=== PATIENT | male | born 1985 | race Caucasian/White ===

== ENCOUNTER 2016-07-14 18:59 | Emergency (ER) | payer SELFPAY ==
[2016-07-14 20:39] VITALS: BP 117/84; PULSE 93; TEMP 98.9; BMI 24.3
--- NOTE | 2016-07-14 20:43 | EDPRACDOC ---
- General Information Chief Complaint: Wound Stated Complaint: ABD ABSCESS X 2 Time Seen by Provider: 07/14/16 20:35 Information Source: Patient Mode of Arrival:: Car Home Medications: Home Medications Cephalexin Monohydrate [Keflex] 500 mg PO Q6H #28 cap 02/03/16 Ibuprofen 600 mg PO TID #20 tablet 02/03/16 Lorazepam [Ativan] 1 mg PO TID #10 tab 02/03/16 Cephalexin Monohydrate [Keflex] 500 mg PO QID #28 cap 07/14/16 Clindamycin HCl 300 mg PO TID #21 capsule 07/14/16 Ketorolac Tromethamine 10 mg PO Q8H PRN #15 tab 07/14/16 Allergies/Adverse Reactions: Allergies Allergy/AdvReac Type Severity Reaction Status Date / Time Sulfa (Sulfonamide Allergy Unknown Unknown/See Verified 02/03/16 15:48 Antibiotics) Comments [Sulfa(Sulfonamide Antibiotics)] hydrocodone Allergy Itching Verified 02/03/16 15:48 - History of Present Illness Onset: 2 days HPI: Pt c/o 3 different areas of erythema to abd x 2days. Denies fever, n/v, changes in bowel or bladder, red streaking, Hx of similar. Location: Reports: Abdomen Last Tetanus: Yes Relevent History Of: Reports: IV Drug Use Prior Abscess: Reports: Same Pain: Reports: Mild Quality: Reports: Draining, Painful, Red Associated Signs & Symptoms: Reports: None ED Past Medical History - History Reviewed Yes Nurses notes reviewed and agree except as marked - Patient Medical History GI/ History: Reports: Kidney Stones Psychological History: Reports: Depression Systemic History: Denies: Cancer Surgical History: Reports: Tonsillectomy/Adnoidectomy - Family Medical History Reports: Diabetes (GRANDMOTHER) - Social Medical History Smoking Status: Heavy tobacco smoker (5 or more cigarettes/day or daily pipe/ cigar) 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 negative: Fever, Chills, Weakness, Fatigue, Loss of Appetite Respiratory: No Symptoms Reported. negative: Cough, Brassy Cough, Barky Cough, Shortness of Breath, Wheezing, Hemoptysis Cardiovascular: No Symptoms Reported. negative: Chest Pain, Palpitations, Syncope, Edema, Orthopnea, PND, Skin Mottling, Cyanosis Gastrointestinal: No Symptoms Reported. negative: Pain, Constipation, Nausea, Vomiting, Diarrhea, Melena, Formula Intolerance Genitourinary: No Symptoms Reported. negative: Dysuria, Hematuria, Frequency, Discharge, Bleeding, Testicular Pain, Neurological: No Symptoms Reported. negative: Headache, Dizziness, Seizure, Numbness, Weakness, Speech Difficulty, Gait Difficulty Musculoskeletal: No Symptoms Reported. negative: Neck, Chestwall, Ribs, Back, Shoulder, Arm, Elbow, Forearm, Wrist, Hand, Pelvis, Hip, Femur, Knee, Leg, Ankle , Foot Integumentary: Wound Allergic/Immunologic: No Symptoms Reported. negative: Hives, Itching Hematologic: No Symptoms Reported. negative: Lymphadenopathy, Easy Bruising, Easy Bleeding Psychiatric: No Symptoms Reported. negative: Anxiety, Depression, Hallucinations, Insomnia, Suicidal - Physical Exam Constitutional: No apparent distress, Alert Oriented to: Time, Person, Place Last recorded Vital Signs: Last Vital Signs Temp 98.9 F 07/14/16 20:30 Pulse 93 07/14/16 20:30 Resp 18 07/14/16 20:30 BP 117/84 07/14/16 20:30 Pulse Ox 98 07/14/16 20:30 Oxygen Pulse Oxygen Saturation 98 O2 Device Room Air Oxygen Flow Rate Fraction of Inspired Oxygen ( FIO2) - HEENT Head: Normal ( normocephalic) - Respiratory/Cardiovascular Respiratory: Normal - CTA (BBS clear to auscultation without adventitious sounds ) Cardiovascular: Normal (RRR without murmur, gallop or rub) - GI Auscultation: Normal (NABS) Palpation: Normal (Soft,No rebound or guarding, non distended) Tenderness: Non tender Kelley's Sign: Negative - Musculoskeletal Back: Normal (Non-Tender) Extremities: Normal (Normal tone, Pulses 2+ No cyanosis or edema, FROM) - Integumentary Skin: Normal, Warm, Dry Lymphatics: Normal (no adenopathy) - Neurologic Memory Impaired: Normal Motor Function: Normal Mood Description: Normal Perception: Normal ED Abscess/Mass Exam - Integumentary Skin: Normal, Warm, Dry Mass: Red, Tender, Pustule, Local Cellulitis Lymphatics: Normal Body Image: 1 - cellulitis with open wound 2 - cellulitlis with small pustule, no drainable abscess 3 - erythema without abscess - Other Exam Other Exam Findings: tract everett to bilateral arms without erythema - Differential Diagnosis Abscess, Cellulitis Decision Time to Discharge: 20:41 - Departure Disposition: Home Condition: Good Final Diagnosis: Cellulitis of abdominal wall Instructions: Cellulitis (ED) Education/Counseling Given To: Patient Education/Counseling Given Regarding: Diagnosis, Treatment, Follow Up Referrals: None,No Provider [Primary Care Provider] - One Week Thomas Brandt II, MD [Staff Physician] - One Week Prescriptions: Cephalexin Monohydrate [Keflex] 500 mg PO QID #28 cap Clindamycin HCl 300 mg PO TID #21 capsule Ketorolac Tromethamine 10 mg PO Q8H PRN #15 tab PRN Reason: Pain Additional Instructions: Keep wound clean and dry, apply warm compresses to affected area 20 mins at a time 4 - 5 times daily, return to the ED for any worsening symptoms or concerns.
== END 2016-07-14 21:01 | disposition home or self-care (01) ==
LOC: EDMC 18:59
DX: L03.311 Cellulitis of abdominal wall (principal)
CPT/HCPCS: 99282